=== PATIENT | female | born 1970 | race Caucasian/White ===

== ENCOUNTER 2019-02-21 20:08 | Emergency (ER) | payer BC ==
[2019-02-21 20:19] VITALS: RESP 18; TEMP 98.7
[2019-02-21] MEDS ORDERED: KETOROLAC 30 MG/ML 1 ML VIAL IVP STA (20:34)
[2019-02-21] MEDS ORDERED: SODIUM CHLORIDE 0.9% 1,000 ML IV STA (20:34)
--- NOTE | 2019-02-21 20:39 | ED ---
Abdominal Pain HPI - General Chief Complaint: Abdominal Pain Stated Complaint: Side pain Time Seen by Provider: 02/21/19 20:23 Source: patient Mode of arrival: ambulatory Limitations: no limitations - History of Present Illness Initial Comments: Patient a 48-year-old female presenting to emergency Department with complaints of left-sided abdominal pain on and off for a week. Patient states the pain is in her left side with radiation to the left flank area. Patient states the pain gets really sharp at times and then dull other times. Patient rates her pain a 7/10 right now. Patient denies chest pain, shortness of breath, nausea, vomiting, burning with urination. Patient admits to having a history of stones in her kidneys but has never had pain from them. Patient has no other complaints at this time. - Related Data Previous Rx's Medication Instructions Recorded Ciprofloxacin HCl [Cipro] 500 mg PO Q12HR #20 tablet 04/30/14 Clindamycin HCl 300 mg PO Q6HR #40 cap 04/30/14 Ketorolac [Toradol] 10 mg PO Q8HR #15 tab 02/21/19 Allergies Allergy/AdvReac Type Severity Reaction Status Date / Time amoxicillin trihydrate Allergy Unknown Verified 02/21/19 20:19 [From Augmentin] latex Allergy Unknown Verified 02/21/19 20:19 potassium clavulanate Allergy Unknown Verified 02/21/19 20:19 [From Augmentin] Review of Systems ROS Statement: Those systems with pertinent positive or pertinent negative responses have been documented in the HPI. ROS Other: All systems not noted in ROS Statement are negative. Past Medical History Past Medical History: No Reported History History of Any Multi-Drug Resistant Organisms: None Reported Past Surgical History: Appendectomy, Cholecystectomy Additional Past Surgical History / Comment(s): shoulder surgery, cyst removed from thyroid Past Psychological History: No Psychological Hx Reported Smoking Status: Current every day smoker Past Alcohol Use History: Occasional Past Drug Use History: None Reported General Exam - General Exam Comments Initial Comments: GENERAL: Well-appearing, well-nourished and in no acute distress. HEAD: Atraumatic, normocephalic. EYES: Pupils equal round and reactive to light, extraocular movements intact, sclera anicteric, conjunctiva are normal. ENT: TMs normal, nares patent, oropharynx clear without exudates. Moist mucous membranes. NECK: Normal range of motion, supple without lymphadenopathy or JVD. LUNGS: Breath sounds clear to auscultation bilaterally and equal. No wheezes rales or rhonchi. HEART: Regular rate and rhythm without murmurs, rubs or gallops. ABDOMEN: TTP left lower quadrant and left flank area. Soft, normoactive bowel sounds. No guarding, no rebound. No masses appreciated. Positive left CVA tenderness. : Deferred EXTREMITIES: Normal range of motion, no pitting or edema. No clubbing or cyanosis. NEUROLOGICAL: Cranial nerves II through XII grossly intact. Normal speech, normal gait. PSYCH: Normal mood, normal affect. SKIN: Warm, Dry, normal turgor, no rashes or lesions noted. Limitations: no limitations Course Vital Signs 02/21/19 02/21/19 20:16 22:27 Temperature 98.7 F Pulse Rate 64 56 L Respiratory 18 18 Rate Blood Pressure 113/77 113/73 O2 Sat by Pulse 98 100 Oximetry Medical Decision Making - Medical Decision Making Patient is a 48-year-old female presenting with left side and left flank pain on and off for one week. Patient states the pain is sharp at times and all others. On exam patient is tender in the lower left quadrant and left flank area. CBC and CMP are within normal limits. UA shows moderate amount of blood and a few calcium oxalate crystals. No signs of infection. Urine hCG is negative. CT abdomen shows multiple left-sided renal calculi with largest 7 mm without evidence of renal obstruction. No hydronephrosis. Discussed with patient that her pain is likely related to a large kidney stone but is still present in her kidney. Patient will be given pain Toradol for pain control and referral for a urology for further management. Patient is okay with this plan. Patient felt improvement with Toradol and fluids in the ER. Patient will be discharged. - Lab Data Result diagrams: 02/21/19 20:46 02/21/19 20:46 Lab Results 02/21/19 02/21/19 02/21/19 Range/Units 20:46 20:46 20:46 WBC 7.9 (3.8-10.6) k/uL RBC 5.37 (3.80-5.40) m/uL Hgb 14.5 (11.4-16.0) gm/dL Hct 46.0 (34.0-46.0) % MCV 85.8 (80.0-100.0) fL MCH 27.1 (25.0-35.0) pg MCHC 31.6 (31.0-37.0) g/dL RDW 13.8 (11.5-15.5) % Plt Count 336 (150-450) k/uL Neutrophils % 56 % Lymphocytes % 33 % Monocytes % 5 % Eosinophils % 3 % Basophils % 1 % Neutrophils # 4.4 (1.3-7.7) k/uL Lymphocytes # 2.6 (1.0-4.8) k/uL Monocytes # 0.4 (0-1.0) k/uL Eosinophils # 0.2 (0-0.7) k/uL Basophils # 0.1 (0-0.2) k/uL Sodium 140 (137-145) mmol/L Potassium 3.8 (3.5-5.1) mmol/L Chloride 107 (98-107) mmol/L Carbon Dioxide 24 (22-30) mmol/L Anion Gap 9 mmol/L BUN 14 (7-17) mg/dL Creatinine 0.71 (0.52-1.04) mg/dL Est GFR (CKD-EPI)AfAm >90 (>60 ml/min/1.73 sqM) Est GFR (CKD-EPI)NonAf >90 (>60 ml/min/1.73 sqM) Glucose 85 (74-99) mg/dL Calcium 9.2 (8.4-10.2) mg/dL Total Bilirubin 0.4 (0.2-1.3) mg/dL AST 25 (14-36) U/L ALT 19 (9-52) U/L Alkaline Phosphatase 79 (38-126) U/L Total Protein 6.8 (6.3-8.2) g/dL Albumin 4.2 (3.5-5.0) g/dL Lipase 102 (23-300) U/L Urine Color Urine Appearance (Clear) Urine pH (5.0-8.0) Ur Specific [place] (1.001-1.035) Urine Protein (Negative) Urine Glucose (UA) (Negative) Urine Ketones (Negative) Urine Blood (Negative) Urine Nitrite (Negative) Urine Bilirubin (Negative) Urine Urobilinogen (<2.0) mg/dL Ur Leukocyte Esterase (Negative) Urine RBC (0-5) /hpf Urine WBC (0-5) /hpf Ur Squamous Epith Cells (0-4) /hpf Calcium Oxalate Crystal (None) /hpf Urine Mucus (None) /hpf Urine HCG, Qual Not Detected (Not Detectd) 02/21/19 Range/Units 20:46 WBC (3.8-10.6) k/uL RBC (3.80-5.40) m/uL Hgb (11.4-16.0) gm/dL Hct (34.0-46.0) % MCV (80.0-100.0) fL MCH (25.0-35.0) pg MCHC (31.0-37.0) g/dL RDW (11.5-15.5) % Plt Count (150-450) k/uL Neutrophils % % Lymphocytes % % Monocytes % % Eosinophils % % Basophils % % Neutrophils # (1.3-7.7) k/uL Lymphocytes # (1.0-4.8) k/uL Monocytes # (0-1.0) k/uL Eosinophils # (0-0.7) k/uL Basophils # (0-0.2) k/uL Sodium (137-145) mmol/L Potassium (3.5-5.1) mmol/L Chloride (98-107) mmol/L Carbon Dioxide (22-30) mmol/L Anion Gap mmol/L BUN (7-17) mg/dL Creatinine (0.52-1.04) mg/dL Est GFR (CKD-EPI)AfAm (>60 ml/min/1.73 sqM) Est GFR (CKD-EPI)NonAf (>60 ml/min/1.73 sqM) Glucose (74-99) mg/dL Calcium (8.4-10.2) mg/dL Total Bilirubin (0.2-1.3) mg/dL AST (14-36) U/L ALT (9-52) U/L Alkaline Phosphatase (38-126) U/L Total Protein (6.3-8.2) g/dL Albumin (3.5-5.0) g/dL Lipase (23-300) U/L Urine Color Yellow Urine Appearance Cloudy H (Clear) Urine pH 6.0 (5.0-8.0) Ur Specific [place] 1.036 H (1.001-1.035) Urine Protein 1+ H (Negative) Urine Glucose (UA) Negative (Negative) Urine Ketones 1+ H (Negative) Urine Blood Moderate H (Negative) Urine Nitrite Negative (Negative) Urine Bilirubin Negative (Negative) Urine Urobilinogen 2.0 (<2.0) mg/dL Ur Leukocyte Esterase Negative (Negative) Urine RBC 9 H (0-5) /hpf Urine WBC 2 (0-5) /hpf Ur Squamous Epith Cells 13 H (0-4) /hpf Calcium Oxalate Crystal Occasional H (None) /hpf Urine Mucus Few H (None) /hpf Urine HCG, Qual (Not Detectd) Disposition Clinical Impression: Acute left flank pain, Calculus of kidney Disposition: HOME SELF-CARE Condition: Stable Instructions (If sedation given, give patient instructions): Flank Pain (ED) Additional Instructions: Please return to the Emergency Department if symptoms worsen or any other concerns. Prescriptions: Ketorolac [Toradol] 10 mg PO Q8HR #15 tab Is patient prescribed a controlled substance at d/c from ED?: No Referrals: Jorge L Dale MD [Primary Care Provider] - 1-2 days Ayaan Lazo MD [STAFF PHYSICIAN] - 1-2 days
[2019-02-21 21:00] LABS: Basophils # (A) 0.1 k/uL (0-0.2); Basophils % (A) 1 %; Eosinophils # (A) 0.2 k/uL (0-0.7); Eosinophils % (A) 3 %; HGB 14.5 gm/dL (11.4-16.0); Lymphocytes # (A) 2.6 k/uL (1.0-4.8); Lymphocytes % (A) 33 %; MCH 27.1 pg (25.0-35.0); MCHC 31.6 g/dL (31.0-37.0); MCV 85.8 fL (80.0-100.0); Mean Platelet Volume 6.4; Monocytes # (A) 0.4 k/uL (0-1.0); Monocytes % (A) 5 %; Neutrophils # (A) 4.4 k/uL (1.3-7.7); Neutrophils % (A) 56 %; Platelet Count 336 k/uL (150-450); RBC 5.37 m/uL (3.80-5.40); RDW 13.8 % (11.5-15.5); WBC 7.9 k/uL (3.8-10.6)
[2019-02-21 21:05] LABS: Appearance,Urine Cloudy (Clear); Bilirubin,Urine Negative (Negative); Blood,Urine Moderate (Negative); Calcium Oxalate Crystals,Urine Occasional /hpf; Color,Urine Yellow; Glucose,Urine (UA) Negative (Negative); Ketones,Urine 1+ (Negative); Leukocyte Esterase,Urine Negative (Negative); Mucus,Urine Few /hpf; Nitrite,Urine Negative (Negative); Protein,Urine 1+ (Negative); RBC,Urine 9 /hpf (0-5); Specific Gravity,Urine 1.036 (1.001-1.035); Squamous Epithelial Cell,Urine 13 /hpf (0-4)
[2019-02-21 21:11] LABS: ALT 19 U/L (9-52); AST 25 U/L (14-36); African American GFR (CKD) >90 (>60 ml/min/1.73 sqM); Albumin 4.2 g/dL (3.5-5.0); Alkaline Phosphatase 79 U/L (38-126); Anion Gap 9 mmol/L; Blood Urea Nitrogen 14 mg/dL (7-17); Calcium 9.2 mg/dL (8.4-10.2); Carbon Dioxide 24 mmol/L (22-30); Chloride 107 mmol/L (98-107); Glucose 85 mg/dL (74-99); Lipase 102 U/L (23-300); Potassium 3.8 mmol/L (3.5-5.1); Sodium 140 mmol/L (137-145); Total Bilirubin 0.4 mg/dL (0.2-1.3); Total Protein 6.8 g/dL (6.3-8.2)
--- NOTE | 2019-02-21 21:52 | CT ---
EXAMINATION TYPE: CT abdomen pelvis wo con DATE OF EXAM: 02/21/2019 COMPARISON: None HISTORY: Left flank pain CT DLP: 847.2 mGycm Automated exposure control for dose reduction was used. TECHNIQUE: Helical acquisition of images was performed from the lung bases through the pelvis. FINDINGS: Lung bases are clear. There is no pleural effusion. Heart size is normal. Liver spleen pancreas appear normal. There are clips from cholecystectomy. Bile ducts are not dilated . Stomach appears normal. There is no adrenal mass. There are a few calculi in the left kidney that measure up to 7 mm. There i s no hydronephrosis. Ureters are not dilated. There is no retroperitoneal adenopathy. There is mild c ortical thinning upper pole left kidney that could relate to chronic pyelonephritis. Bladder distends smoothly. Uterus is anteverted. There is no inguinal hernia. There is no free fluid in the pelvis. There is 2.5 cm cyst on the right ovary. There are some mild spondylosis in the lower lumbar spine. There is no compression fracture. There ar e clips apparently from appendectomy. There is no mesenteric edema. There is no ascites or free air. There is no sign of a bowel obstructio n. The bony pelvis appears intact. IMPRESSION: MULTIPLE LEFT-SIDED RENAL CALCULI WITHOUT EVIDENCE OF RENAL OBSTRUCTION. NO HYDRONEPHROSIS. RIGHT OVA JACEY CYST.
[2019-02-21 22:29] VITALS: BP 113/73; PULSE 56
== END 2019-02-21 22:27 | disposition home or self-care (01) ==
LOC: EC 20:08
DX: N20.0 Calculus of kidney (principal); F17.200 Nicotine dependence, unspecified, uncomplicated; Z90.49 Acquired absence of other specified parts of digestive tract; Z88.0 Allergy status to penicillin; Z91.040 Latex allergy status
CPT/HCPCS: 36415; 80053; 83690; 85025; 81001; 81025; 74176; 99284; 96374; 96361; J1885

== ENCOUNTER → 2019-02-26 | Outpatient (CLI) | payer BC ==
--- NOTE | 2019-02-26 17:00 | XR ---
KUB HISTORY: Right renal calculus KUB on [address] 02/22/2019 There is a calcification superimposed over the midpole the left kidney measuring 8 to 9 mm, 2 mm calc ification is superimposed over the upper pole. There is a small phlebolith in left hemipelvis. Surgical clip is also present in the pelvis and in th e right lower quadrant. Clips present in the right upper quadrant. Degenerative disc change in the visualized spine. IMPRESSION: Left-sided nephrolithiasis.
== END | disposition home or self-care (01) ==
LOC: RADXRMAIN 11:34
PROVIDERS: ATTEND Urology
DX: N20.0 Calculus of kidney (principal)
CPT/HCPCS: 74018

== ENCOUNTER → 2019-03-09 | Outpatient (CLI) | payer BC ==
--- NOTE | 2019-03-09 13:02 | XR ---
EXAMINATION TYPE: XR KUB DATE OF EXAM: 03/09/2019 COMPARISON: 02/26/2019 HISTORY: Left renal calculus TECHNIQUE: One view abdominal series FINDINGS: The osseous structures are intact. The bowel gas pattern is nonspecific. Bowel content obscures the renal outlines however there suspicion for 2 mm upper pole left renal calculus. Surgical clips are no crystal. Punctate calcification left hemipelvis stable. Hypertrophic changes of the acetabulum can be ass ociated with femoral acetabular impingement. IMPRESSION: 1. Nonspecific abdomen. 2. Suspect a punctate 2 mm left upper pole renal calculus.
== END | disposition home or self-care (01) ==
LOC: RADXRMAIN 11:18
PROVIDERS: ATTEND Urology
DX: N20.0 Calculus of kidney (principal)
CPT/HCPCS: 74018

== ENCOUNTER 2021-05-06 11:53 | Emergency (ER) | payer BC ==
[2021-05-06 12:12] VITALS: RESP 18
--- NOTE | 2021-05-06 12:14 | ED ---
General Adult HPI - General Chief complaint: Recheck/Abnormal Lab/Rx Stated complaint: Abd Pain Time Seen by Provider: 05/06/21 12:13 Source: patient Mode of arrival: ambulatory Limitations: no limitations - History of Present Illness Initial comments: 51-year-old female history of kidney stones presenting to emergency with a chief complaint of a kidney stone. She states her symptoms began about 3 days ago and is located in the left flank region. States her most recent kidney stone was over 5 years ago. Patient reports now the symptoms seem to be persistent the left flank with occasional radiation to the abdomen. She reports going to her primary care physician and was started on Azo and Macrobid with no improvement of symptoms. Patient states there is no urinary or vaginal symptoms. Denies any fevers or chills. Does report some nausea but denies any vomiting diarrhea constipation. She denies any hematuria, hematochezia or melena. - Related Data Home Medications Medication Instructions Recorded Confirmed Ibuprofen [Motrin] 800 mg PO TID PRN 05/06/21 05/06/21 Loratadine [Claritin] 10 mg PO DAILY PRN 05/06/21 05/06/21 Nitrofurantoin Monohyd/M-Cryst 100 mg PO BID 05/06/21 05/06/21 [Macrobid] Allergies Allergy/AdvReac Type Severity Reaction Status Date / Time amoxicillin trihydrate Allergy Swelling Verified 05/06/21 13:15 [From Augmentin] latex Allergy Swelling Verified 05/06/21 13:15 potassium clavulanate Allergy Swelling Verified 05/06/21 13:15 [From Augmentin] Review of Systems ROS Statement: Those systems with pertinent positive or pertinent negative responses have been documented in the HPI. ROS Other: All systems not noted in ROS Statement are negative. Past Medical History Past Medical History: No Reported History History of Any Multi-Drug Resistant Organisms: None Reported Past Surgical History: Appendectomy, Cholecystectomy Additional Past Surgical History / Comment(s): shoulder surgery, cyst removed from thyroid Past Psychological History: No Psychological Hx Reported Smoking Status: Current every day smoker Past Alcohol Use History: Occasional Past Drug Use History: None Reported General Exam Limitations: no limitations General appearance: alert, in no apparent distress, obese Head exam: Present: atraumatic, normocephalic, normal inspection Eye exam: Present: normal appearance Pupils: Present: normal accommodation ENT exam: Present: normal exam, normal oropharynx, mucous membranes moist Neck exam: Present: normal inspection, full ROM. Absent: tenderness, lymphadenopathy Respiratory exam: Present: normal lung sounds bilaterally. Absent: respiratory distress, wheezes, rales, rhonchi, stridor, chest wall tenderness, accessory muscle use Cardiovascular Exam: Present: regular rate, normal rhythm, normal heart sounds. Absent: systolic murmur GI/Abdominal exam: Present: soft. Absent: distended, tenderness, guarding, rebound, rigid Extremities exam: Present: normal inspection, full ROM, normal capillary refill. Absent: tenderness, pedal edema, joint swelling Back exam: Present: normal inspection, full ROM, tenderness, CVA tenderness (L). Absent: CVA tenderness (R) Neurological exam: Present: alert, oriented X3, normal gait Psychiatric exam: Present: normal affect, normal mood Skin exam: Present: warm, dry, intact, normal color Course Vital Signs 05/06/21 12:09 Temperature 98.2 F Pulse Rate 84 Respiratory 18 Rate Blood Pressure 124/94 O2 Sat by Pulse 97 Oximetry Medical Decision Making - Medical Decision Making 51-year-old female presents to emergency department for chief complaint of left flank pain. Physical examination, left CVA tenderness. She is otherwise well- appearing. Patient was given IV fluids, analgesia and antiemetics. On reevaluation, she reports some improvement of symptoms but it continued to persist. Patient was also given additional analgesia. UA shows hematuria. Negative . The rest of the laboratory workup is unremarkable. CT of the abdomen and pelvis without contrast reveals a 3 mm nonobstructing stone. There is a possibility for renal cyst on the right side as well. I advised the patient to follow up with the urologist. I will give her Tylenol 3 starter pack for home. We'll also discharge her with Flomax and Zofran. Advised to follow- up with urologist. Return parameters were thoroughly discussed the patient was then given. Case discussed physician. - Lab Data Result diagrams: 05/06/21 12:44 05/06/21 12:44 Lab Results 05/06/21 05/06/21 05/06/21 Range/Units 12:44 12:44 12:44 WBC 5.8 (3.8-10.6) k/uL RBC 5.32 (3.80-5.40) m/uL Hgb 15.3 (11.4-16.0) gm/dL Hct 45.7 (34.0-46.0) % MCV 85.9 (80.0-100.0) fL MCH 28.8 (25.0-35.0) pg MCHC 33.5 (31.0-37.0) g/dL RDW 13.9 (11.5-15.5) % Plt Count 322 (150-450) k/uL MPV 6.9 Neutrophils % 58 % Lymphocytes % 31 % Monocytes % 5 % Eosinophils % 3 % Basophils % 1 % Neutrophils # 3.3 (1.3-7.7) k/uL Lymphocytes # 1.8 (1.0-4.8) k/uL Monocytes # 0.3 (0-1.0) k/uL Eosinophils # 0.2 (0-0.7) k/uL Basophils # 0.1 (0-0.2) k/uL Sodium (137-145) mmol/L Potassium (3.5-5.1) mmol/L Chloride (98-107) mmol/L Carbon Dioxide (22-30) mmol/L Anion Gap mmol/L BUN (7-17) mg/dL Creatinine (0.52-1.04) mg/dL Est GFR (CKD-EPI)AfAm (>60 ml/min/1.73 sqM) Est GFR (CKD-EPI)NonAf (>60 ml/min/1.73 sqM) Glucose (74-99) mg/dL Calcium (8.4-10.2) mg/dL Total Bilirubin (0.2-1.3) mg/dL AST (14-36) U/L ALT (4-34) U/L Alkaline Phosphatase (38-126) U/L Total Protein (6.3-8.2) g/dL Albumin (3.5-5.0) g/dL Lipase (23-300) U/L Urine Color Yellow Urine Appearance Clear (Clear) Urine pH 7.0 (5.0-8.0) Ur Specific [place] 1.012 (1.001-1.035) Urine Protein Negative (Negative) Urine Glucose (UA) Negative (Negative) Urine Ketones Negative (Negative) Urine Blood Small H (Negative) Urine Nitrite Negative (Negative) Urine Bilirubin Negative (Negative) Urine Urobilinogen <2.0 (<2.0) mg/dL Ur Leukocyte Esterase Negative (Negative) Urine RBC 29 H (0-5) /hpf Urine WBC 2 (0-5) /hpf Ur Squamous Epith Cells 3 (0-4) /hpf Urine Mucus Rare H (None) /hpf Urine HCG, Qual Not Detected (Not Detectd) 05/06/21 Range/Units 12:44 WBC (3.8-10.6) k/uL RBC (3.80-5.40) m/uL Hgb (11.4-16.0) gm/dL Hct (34.0-46.0) % MCV (80.0-100.0) fL MCH (25.0-35.0) pg MCHC (31.0-37.0) g/dL RDW (11.5-15.5) % Plt Count (150-450) k/uL MPV Neutrophils % % Lymphocytes % % Monocytes % % Eosinophils % % Basophils % % Neutrophils # (1.3-7.7) k/uL Lymphocytes # (1.0-4.8) k/uL Monocytes # (0-1.0) k/uL Eosinophils # (0-0.7) k/uL Basophils # (0-0.2) k/uL Sodium 138 (137-145) mmol/L Potassium 4.4 (3.5-5.1) mmol/L Chloride 109 H (98-107) mmol/L Carbon Dioxide 21 L (22-30) mmol/L Anion Gap 8 mmol/L BUN 11 (7-17) mg/dL Creatinine 0.69 (0.52-1.04) mg/dL Est GFR (CKD-EPI)AfAm >90 (>60 ml/min/1.73 sqM) Est GFR (CKD-EPI)NonAf >90 (>60 ml/min/1.73 sqM) Glucose 105 H (74-99) mg/dL Calcium 9.5 (8.4-10.2) mg/dL Total Bilirubin 0.3 (0.2-1.3) mg/dL AST 30 (14-36) U/L ALT 23 (4-34) U/L Alkaline Phosphatase 90 (38-126) U/L Total Protein 6.8 (6.3-8.2) g/dL Albumin 4.3 (3.5-5.0) g/dL Lipase 106 (23-300) U/L Urine Color Urine Appearance (Clear) Urine pH (5.0-8.0) Ur Specific [place] (1.001-1.035) Urine Protein (Negative) Urine Glucose (UA) (Negative) Urine Ketones (Negative) Urine Blood (Negative) Urine Nitrite (Negative) Urine Bilirubin (Negative) Urine Urobilinogen (<2.0) mg/dL Ur Leukocyte Esterase (Negative) Urine RBC (0-5) /hpf Urine WBC (0-5) /hpf Ur Squamous Epith Cells (0-4) /hpf Urine Mucus (None) /hpf Urine HCG, Qual (Not Detectd) Disposition Clinical Impression: Renal stone Disposition: HOME SELF-CARE Condition: Stable Instructions (If sedation given, give patient instructions): Kidney Stones (ED) Additional Instructions: Take prescribed medication as directed. Follow-up with urology. Return to emergency department if symptoms worsen. Is patient prescribed a controlled substance at d/c from ED?: No Referrals: Jorge L Dale MD [Primary Care Provider] - 1-2 days Ayaan Lazo MD [STAFF PHYSICIAN] - 1-2 days Time of Disposition: 14:18
[2021-05-06] MEDS ORDERED: KETOROLAC 15 MG/ML 1 ML VIAL IVP STA (12:27)
[2021-05-06] MEDS ORDERED: PANTOPRAZOLE 40 MG/10 ML VIAL IVP STA (12:27)
[2021-05-06] MEDS ORDERED: ONDANSETRON 4 MG/2 ML VIAL IVP STA (12:27)
[2021-05-06] MEDS ORDERED: SODIUM CHLORIDE 0.9% 1,000 ML IV STA (12:27)
[2021-05-06 13:05] LABS: Basophils # (A) 0.1 k/uL (0-0.2); Basophils % (A) 1 %; Eosinophils # (A) 0.2 k/uL (0-0.7); Eosinophils % (A) 3 %; HCT 45.7 % (34.0-46.0); HGB 15.3 gm/dL (11.4-16.0); Lymphocytes # (A) 1.8 k/uL (1.0-4.8); Lymphocytes % (A) 31 %; MCH 28.8 pg (25.0-35.0); MCHC 33.5 g/dL (31.0-37.0); MCV 85.9 fL (80.0-100.0); Mean Platelet Volume 6.9; Monocytes # (A) 0.3 k/uL (0-1.0); Monocytes % (A) 5 %; Neutrophils # (A) 3.3 k/uL (1.3-7.7); Neutrophils % (A) 58 %; Platelet Count 322 k/uL (150-450); RBC 5.32 m/uL (3.80-5.40); RDW 13.9 % (11.5-15.5); WBC 5.8 k/uL (3.8-10.6)
[2021-05-06 13:12] LABS: ALT 23 U/L (4-34); AST 30 U/L (14-36); African American GFR (CKD) >90 (>60 ml/min/1.73 sqM); Albumin 4.3 g/dL (3.5-5.0); Alkaline Phosphatase 90 U/L (38-126); Anion Gap 8 mmol/L; Blood Urea Nitrogen 11 mg/dL (7-17); Calcium 9.5 mg/dL (8.4-10.2); Carbon Dioxide 21 mmol/L (22-30); Chloride 109 mmol/L (98-107); Glucose 105 mg/dL (74-99); Lipase 106 U/L (23-300); Non-African American GFR(CKD) >90 (>60 ml/min/1.73 sqM); Potassium 4.4 mmol/L (3.5-5.1); Sodium 138 mmol/L (137-145); Total Bilirubin 0.3 mg/dL (0.2-1.3); Total Protein 6.8 g/dL (6.3-8.2)
[2021-05-06 13:18] LABS: Appearance,Urine Clear (Clear); Bilirubin,Urine Negative (Negative); Blood,Urine Small (Negative); Color,Urine Yellow; Glucose,Urine (UA) Negative (Negative); Ketones,Urine Negative (Negative); Leukocyte Esterase,Urine Negative (Negative); Mucus,Urine Rare /hpf; Nitrite,Urine Negative (Negative); Protein,Urine Negative (Negative); RBC,Urine 29 /hpf (0-5); Specific Gravity,Urine 1.012 (1.001-1.035); Squamous Epithelial Cell,Urine 3 /hpf (0-4); Urobilinogen,Urine <2.0 mg/dL (<2.0); WBC,Urine 2 /hpf (0-5)
[2021-05-06] MEDS ORDERED: MORPHINE SULFATE 4 MG/ML SYRINGE IVP STA (14:09)
--- NOTE | 2021-05-06 14:13 | CT ---
EXAMINATION TYPE: CT abdomen pelvis wo con DATE OF EXAM: 05/06/2021 COMPARISON: 02/21/2019 HISTORY: Left flank pain TECHNIQUE: CT scan of the abdomen and pelvis performed without contrast CT DLP: 1068.4 mGycm Automated exposure control for dose reduction was used. FINDINGS: The lower thorax is unremarkable. Lack of IV contrast limits evaluation of intra-abdominal and pelvic organs. The liver, spleen, pancreas and adrenal glands are unremarkable. Cholecystectomy clips are seen. No a bnormal biliary ductal dilatation seen. There is a 3 mm calculus in the left kidney upper pole. There is no hydronephrosis of either kidneys. Suboptimally evaluated low attenuating lesion in the right kidney lower pole posteriorly series 201 image 38 may represent a cyst. Ureters are not dilated. The urinary bladder is partially distended un remarkable as seen. No evidence for intestinal obstruction. No diverticulosis seen. The appendix is not definitely identi fied, no inflammatory changes are seen in the right lower quadrant. No pneumoperitoneum or ascites. No enlarged retroperitoneal or pelvic lymph nodes. There is a prominent lymph node in the periportal area series 201 image 25. This was seen on prior study. The uterus and adnexal regions are unremarkable. No acute osseous abnormality. Mild to moderate degenerative changes are seen in the lower lumbar spin e. The aorta is nonaneurysmal. Minimal wall calcifications are seen in the infrarenal abdominal aorta. IMPRESSION: 1. NONOBSTRUCTING 3 MM LEFT RENAL CALCULUS. 2. QUESTIONABLE RIGHT RENAL LOW ATTENUATING LESION COULD REPRESENT A CYST, RENAL ULTRASOUND RECOMMEND ED.
[2021-05-06] MEDS ORDERED: ACET/COD 300 MG/30 MG STARTER PACK 6 TAB BTL PO STA (14:18)
[2021-05-06 14:27] VITALS: BP 119/78; PULSE 66; TEMP 98
== END 2021-05-06 14:56 | disposition home or self-care (01) ==
LOC: EC 11:53
DX: N20.0 Calculus of kidney (principal); E66.9 Obesity, unspecified; F17.200 Nicotine dependence, unspecified, uncomplicated; Z79.1 Long term (current) use of non-steroidal anti-inflammatories (NSAID); Z88.0 Allergy status to penicillin; Z88.1 Allergy status to other antibiotic agents; Z90.49 Acquired absence of other specified parts of digestive tract; Z68.37 Body mass index [BMI] 37.0-37.9, adult
CPT/HCPCS: 36415; 80053; 83690; 85025; 81001; 81025; 74176; 96374; 96375 ×3; 96361; 99284; J2270; J2405; J1885; C9113

== ENCOUNTER 2021-05-07 18:09 | Emergency (ER) | payer BC ==
[2021-05-07 18:13] VITALS: RESP 18; TEMP 97.6
[2021-05-07] MEDS ORDERED: KETOROLAC 15 MG/ML 1 ML VIAL IVP STA (18:27)
[2021-05-07] MEDS ORDERED: ONDANSETRON ODT 8 MG TAB.RAPDIS PO STA (18:27)
[2021-05-07] MEDS ORDERED: SODIUM CHLORIDE 0.9% 1,000 ML IV STA (18:27)
[2021-05-07] MEDS ORDERED: PANTOPRAZOLE 40 MG/10 ML VIAL IVP STA (18:27)
[2021-05-07 18:40] LABS: Basophils # (A) 0.1 k/uL (0-0.2); Basophils % (A) 0 %; Eosinophils # (A) 0.1 k/uL (0-0.7); Eosinophils % (A) 1 %; HCT 46.4 % (34.0-46.0); HGB 15.1 gm/dL (11.4-16.0); Lymphocytes # (A) 1.2 k/uL (1.0-4.8); Lymphocytes % (A) 11 %; MCH 27.6 pg (25.0-35.0); MCHC 32.6 g/dL (31.0-37.0); MCV 84.8 fL (80.0-100.0); Mean Platelet Volume 6.7; Monocytes # (A) 0.4 k/uL (0-1.0); Monocytes % (A) 3 %; Neutrophils # (A) 9.9 k/uL (1.3-7.7); Neutrophils % (A) 84 %; Platelet Count 348 k/uL (150-450); RBC 5.48 m/uL (3.80-5.40); RDW 13.9 % (11.5-15.5); WBC 11.7 k/uL (3.8-10.6)
--- NOTE | 2021-05-07 18:45 | ED ---
Abdominal Pain HPI - General Source: patient Mode of arrival: ambulatory Limitations: no limitations <Ramakrishna Asencio - Last Filed: 05/07/21 19:12> <Hiwot Pruett - Last Filed: 05/07/21 20:21> - General Chief Complaint: Abdominal Pain Stated Complaint: altered mental status, kidney stone Time Seen by Provider: 05/07/21 18:15 - History of Present Illness Initial Comments: 51-year-old female with history of renal stones presenting to the emergency department with a chief complaint of a kidney stone and weakness. Patient reports she was evaluated yesterday in emergency department for the same chief complaint not she is having worsening symptoms. States the pain has migrated from the left flank to the left groin region. However, patient reports not she is feeling significantly weaker. She reports nausea with nonbilious and nonbloody vomiting. Patient reports generalized fatigue and chills but no fevers. The patient's friend is also with her states the patient is not acting like herself. Denies any chest pain or shortness of breath. Denies hematuria, hematochezia or melena. Denies any obstructive or infectious urinary symptoms. Denies any vaginal symptoms. (Ramakrishna Asencio) - Related Data Home Medications Medication Instructions Recorded Confirmed Ibuprofen [Motrin] 800 mg PO TID PRN 05/06/21 05/07/21 Loratadine [Claritin] 10 mg PO DAILY PRN 05/06/21 05/07/21 Nitrofurantoin Monohyd/M-Cryst 100 mg PO BID 05/06/21 05/07/21 [Macrobid] Previous Rx's Medication Instructions Recorded Ondansetron Odt [Zofran Odt] 4 mg PO Q8HR PRN #10 tab 05/06/21 Tamsulosin [Flomax] 0.4 mg PO DAILY #7 cap 05/06/21 HYDROcodone/APAP 5-325MG [[place] 5] 1 each PO Q6HR PRN #12 tab 05/07/21 Allergies Allergy/AdvReac Type Severity Reaction Status Date / Time amoxicillin trihydrate Allergy Swelling Verified 05/07/21 20:08 [From Augmentin] latex Allergy Swelling Verified 05/07/21 20:08 potassium clavulanate Allergy Swelling Verified 05/07/21 20:08 [From Augmentin] Review of Systems ROS Other: All systems not noted in ROS Statement are negative. <Ramakrishna Asencio - Last Filed: 05/07/21 19:12> ROS Other: All systems not noted in ROS Statement are negative. <Hiwot Pruett - Last Filed: 05/07/21 20:21> ROS Statement: Those systems with pertinent positive or pertinent negative responses have been documented in the HPI. Past Medical History Past Medical History: No Reported History History of Any Multi-Drug Resistant Organisms: None Reported Past Surgical History: Appendectomy, Cholecystectomy Additional Past Surgical History / Comment(s): shoulder surgery, cyst removed from thyroid Past Psychological History: No Psychological Hx Reported Smoking Status: Current every day smoker Past Alcohol Use History: Occasional Past Drug Use History: None Reported <Ramakrishna Asencio - Last Filed: 05/07/21 19:12> General Exam Limitations: no limitations General appearance: alert, in no apparent distress, obese Head exam: Present: atraumatic, normocephalic, normal inspection Eye exam: Present: normal appearance Pupils: Present: normal accommodation ENT exam: Present: normal exam, normal oropharynx, mucous membranes moist Neck exam: Present: normal inspection, full ROM. Absent: tenderness, lymphadenopathy, thyromegaly Respiratory exam: Present: normal lung sounds bilaterally. Absent: respiratory distress, wheezes, rales, rhonchi, stridor, chest wall tenderness, accessory muscle use Cardiovascular Exam: Present: regular rate, normal rhythm, normal heart sounds. Absent: systolic murmur GI/Abdominal exam: Present: soft, tenderness (Left groin pain). Absent: distended, guarding, rebound, rigid Extremities exam: Present: normal inspection, full ROM, normal capillary refill. Absent: tenderness, pedal edema, joint swelling Back exam: Present: normal inspection, full ROM, CVA tenderness (L) (Mild). Absent: tenderness, CVA tenderness (R) Neurological exam: Present: alert, oriented X3, CN II-XII intact, normal gait Psychiatric exam: Present: normal affect, normal mood Skin exam: Present: warm, dry, intact, normal color <Ramakrishna Asencio - Last Filed: 05/07/21 19:12> Course Vital Signs 05/07/21 05/07/21 18:11 20:00 Temperature 97.6 F Pulse Rate 82 76 Respiratory 18 18 Rate Blood Pressure 133/78 119/82 O2 Sat by Pulse 100 97 Oximetry Medical Decision Making - Lab Data Result diagrams: 05/07/21 18:31 05/07/21 18:31 <Ramakrishna Asencio - Last Filed: 05/07/21 19:12> - Lab Data Result diagrams: 05/07/21 18:31 05/07/21 18:31 <Hiwot Pruett - Last Filed: 05/07/21 20:21> - Medical Decision Making 51-year-old female with history of renal stones presenting to the emergency depa rtment with a chief complaint of a kidney stone. On physical examination, patient is alert and oriented 3. She does appear to be slightly weak. Left groin tenderness on exam. Laboratory work reveals mild leukocytosis. CMP unremarkable. UA pending. Patient was given IV fluids, analgesia and Protonix and antiemetics. At this time, patient care is signed out to Hiwot Brown NP. (Ramakrishna Asencio) 51-year-old female patient presenting for evaluation of left flank pain weakness. Took over care of patient from Ramakrishna Ireland PA-c. She was evaluated yesterday he was found to have a 3 mm obstructing stone on the left side. Today we presented for increased pain or weakness. I did review labs kidney function is normal. There was mild increase in white blood cell count. Urinalysis shows no evidence for infection. Upon reevaluation she is resting comfortable in bed. States her pain medication did help. She does express some concern about going home due to the weakness. I discussed all lab findings and discussed expected course of kidney stone. She will be discharged with pain medication. She does have zofran and flomax. She is instructed to follow-up with the urologist for further evaluation as soon as possible. Return parameters discussed in detail. She verbalizes understanding and agrees with this plan. Case discussed with my attending Dr. Rey. (Hiwot Pruett) - Lab Data Lab Results 05/07/21 05/07/21 05/07/21 Range/Units 18:31 18:31 19:22 WBC 11.7 H (3.8-10.6) k/uL RBC 5.48 H (3.80-5.40) m/uL Hgb 15.1 (11.4-16.0) gm/dL Hct 46.4 H (34.0-46.0) % MCV 84.8 (80.0-100.0) fL MCH 27.6 (25.0-35.0) pg MCHC 32.6 (31.0-37.0) g/dL RDW 13.9 (11.5-15.5) % Plt Count 348 (150-450) k/uL MPV 6.7 Neutrophils % 84 % Lymphocytes % 11 % Monocytes % 3 % Eosinophils % 1 % Basophils % 0 % Neutrophils # 9.9 H (1.3-7.7) k/uL Lymphocytes # 1.2 (1.0-4.8) k/uL Monocytes # 0.4 (0-1.0) k/uL Eosinophils # 0.1 (0-0.7) k/uL Basophils # 0.1 (0-0.2) k/uL Sodium 132 L (137-145) mmol/L Potassium 4.2 (3.5-5.1) mmol/L Chloride 101 (98-107) mmol/L Carbon Dioxide 20 L (22-30) mmol/L Anion Gap 11 mmol/L BUN 13 (7-17) mg/dL Creatinine 0.70 (0.52-1.04) mg/dL Est GFR (CKD-EPI)AfAm >90 (>60 ml/min/1.73 sqM) Est GFR (CKD-EPI)NonAf >90 (>60 ml/min/1.73 sqM) Glucose 133 H (74-99) mg/dL Calcium 9.2 (8.4-10.2) mg/dL Total Bilirubin 0.3 (0.2-1.3) mg/dL AST 36 (14-36) U/L ALT 27 (4-34) U/L Alkaline Phosphatase 113 (38-126) U/L Total Protein 7.1 (6.3-8.2) g/dL Albumin 4.4 (3.5-5.0) g/dL Lipase 116 (23-300) U/L Urine Color Yellow Urine Appearance Clear (Clear) Urine pH 7.5 (5.0-8.0) Ur Specific [place] 1.007 (1.001-1.035) Urine Protein Negative (Negative) Urine Glucose (UA) Negative (Negative) Urine Ketones 1+ H (Negative) Urine Blood Negative (Negative) Urine Nitrite Negative (Negative) Urine Bilirubin Negative (Negative) Urine Urobilinogen <2.0 (<2.0) mg/dL Ur Leukocyte Esterase Negative (Negative) - EKG Data EKG Comments: Sinus rhythm Matriculate rate 81, LA 140, QRS 84, QTC 457. (Ramakrishna Asencio) Disposition <Ramakrishna Asencio - Last Filed: 05/07/21 19:12> Is patient prescribed a controlled substance at d/c from ED?: No Time of Disposition: 20:08 <Hiwot Pruett - Last Filed: 05/07/21 20:21> Clinical Impression: Left ureteral stone Disposition: HOME SELF-CARE Condition: Good Instructions (If sedation given, give patient instructions): Kidney Stones (ED) Additional Instructions: Increase fluids. Rest. Take medication as directed. Follow up with urology for further evaluation as soon as possible. Return to the emergency department for any new, worsening, or concerning symptoms. Prescriptions: HYDROcodone/APAP 5-325MG [[place] 5] 1 each PO Q6HR PRN #12 tab PRN Reason: Pain Referrals: Jorge L Dale MD [Primary Care Provider] - 1-2 days Ayaan Lazo MD [STAFF PHYSICIAN] - 1-2 days
[2021-05-07 18:47] LABS: ALT 27 U/L (4-34); AST 36 U/L (14-36); African American GFR (CKD) >90 (>60 ml/min/1.73 sqM); Albumin 4.4 g/dL (3.5-5.0); Alkaline Phosphatase 113 U/L (38-126); Anion Gap 11 mmol/L; Blood Urea Nitrogen 13 mg/dL (7-17); Calcium 9.2 mg/dL (8.4-10.2); Carbon Dioxide 20 mmol/L (22-30); Chloride 101 mmol/L (98-107); Glucose 133 mg/dL (74-99); Lipase 116 U/L (23-300); Non-African American GFR(CKD) >90 (>60 ml/min/1.73 sqM); Potassium 4.2 mmol/L (3.5-5.1); Sodium 132 mmol/L (137-145); Total Bilirubin 0.3 mg/dL (0.2-1.3); Total Protein 7.1 g/dL (6.3-8.2)
[2021-05-07] MEDS ORDERED: MORPHINE SULFATE 4 MG/ML SYRINGE IVP STA (19:18)
[2021-05-07 19:35] LABS: Appearance,Urine Clear (Clear); Bilirubin,Urine Negative (Negative); Blood,Urine Negative (Negative); Color,Urine Yellow; Glucose,Urine (UA) Negative (Negative); Ketones,Urine 1+ (Negative); Leukocyte Esterase,Urine Negative (Negative); Nitrite,Urine Negative (Negative); PH, Urine 7.5 (5.0-8.0); Protein,Urine Negative (Negative); Specific Gravity,Urine 1.007 (1.001-1.035); Urobilinogen,Urine <2.0 mg/dL (<2.0)
[2021-05-07 20:11] VITALS: BP 119/82; PULSE 76
== END 2021-05-07 20:13 | disposition home or self-care (01) ==
LOC: EC 18:09
DX: N20.1 Calculus of ureter (principal); F17.200 Nicotine dependence, unspecified, uncomplicated; Z72.89 Other problems related to lifestyle
CPT/HCPCS: 36415; 80053; 83690; 85025; 81003; 99284; 96374; 96375 ×2; 96361; J2270; J1885; C9113

== ENCOUNTER → 2023-02-20 | Outpatient (CLI) | payer OTHER ==
--- NOTE | 2023-02-20 08:12 | MM ---
Reason for Exam: Clinical finding. Last mammogram was performed 4 year(s) and 3 month(s) ago. Patient History: Menarche at age 8. First Full-Term at age 23. Postmenopausal. Mother had breast cancer. Risk Values: Lucy 5 year model risk: 2.5%. NCI Lifetime model risk: 17.2%. Prior Study Comparison: 11/27/2013 Bilateral Screening Mammogram, [facility]. 04/06/2015 Bilateral Screening Mammogram, [facility]. 11/24/2018 Bilateral Screening Mammogram, [facility]. Tissue Density: The breast tissue is heterogeneously dense. This may lower the sensitivity of mammography. Findings: Analyzed By CAD. Patient complains of bilateral nonspecific breast pain. Pattern appears stable. Chronic nodularity is in the outer right mid breast may be an intramammary lymph node. No significant interval change is evident. No suspicious groups of microcalcifications, spiculated or lobular masses, architectural distortion or other secondary signs of malignancy are mammographically apparent. Overall Assessment: Benign, BI-RAD 2 Management: Screening Mammogram of both breasts in 1 year. A negative mammogram report should not preclude additional follow up of suspicious palpable abnormalities. Patient should continue monthly self breast exam. A clinical breast exam by your physician is recommended on an annual basis and results should be correlated with mammographic findings. Electronically signed and approved by: Joshua Lundberg D.O. Radiologis
== END | disposition home or self-care (01) ==
LOC: RADMAMWWP 07:38
PROVIDERS: ATTEND Obstetrics & Gynecology
DX: N63.10 Unspecified lump in the right breast, unspecified quadrant (principal); N64.4 Mastodynia; Z78.0 Asymptomatic menopausal state; Z80.3 Family history of malignant neoplasm of breast
CPT/HCPCS: 77062; 77066

== ENCOUNTER → 2023-02-28 | Outpatient (CLI) | payer OTHER ==
[2023-02-28 17:18] LABS: Basophils # (A) 0.06 X 10*3/uL (0.00-0.10); Basophils % (A) 0.7 %; Eosinophils # (A) 0.24 X 10*3/uL (0.04-0.35); Eosinophils % (A) 2.8 %; HCT 46.2 % (37.2-46.3); HGB 14.3 d/dL (12.0-15.0); Lymphocytes # (A) 2.17 X 10*3/uL (0.90-5.00); Lymphocytes % (A) 25.7 %; MCV 87.3 FL (80.0-97.0); Mean Platelet Volume 9.8 FL (9.5-12.2); Monocytes # (A) 0.51 X 10*3/uL (0.20-1.00); NRBC Per 100 WBC 0 X 10*3/uL (0.00-0.01); Neutrophils # (A) 5.43 X 10*3/uL (1.80-7.70); Neutrophils % (A) 64.4 %; Platelet Count 345 X 10*3/uL (140-440); RBC 5.29 X 10*6/uL (4.10-5.20); RDW 14.4 % (11.5-14.5); WBC 8.44 X 10*3/uL (4.50-10.00)
== END | disposition home or self-care (01) ==
LOC: LABWHC1 10:15
PROVIDERS: ATTEND Obstetrics & Gynecology
DX: Z01.812 Encounter for preprocedural laboratory examination (principal); R94.31 Abnormal electrocardiogram [ECG] [EKG]
CPT/HCPCS: 85025; 93005

== ENCOUNTER → 2023-04-04 | Outpatient (CLI) | payer OTHER ==
[2023-04-04 10:05] VITALS: BP 114/79; PULSE 85; RESP 17; TEMP 98.7
--- NOTE | 2023-04-04 10:25 | P.GSHP ---
History of Present Illness H&P Date: 04/04/23 Chief Complaint: breast pain Mirtha is a 52 year old white female seen in consultation for Dr. Ramirez regarding breast pain. She had a bilateral mammogram on 02-20-23 which was BIRAD 2. This was personally reviewed with Dr. Talbot. She is not complaining of any lumps masses or nodules of concern in either breast. She does not complain of any nipple discharge or skin changes. She has not had any recent trauma or infection in the breast. She is not complaining of any prior breast surgery. She is complaining of fullness and soreness in both breast. She had not had a period for 2 1/2 hears and she then ahd a period and the pain was related to this. She had a D&C and removed a uterine polyp on 03-19-23. Her estrogen levels were tested at that time and they were elevated. The pain in her breast has since resolved. caffeine: 2-3 cups coffee'/day nicotine: 1/2 PPD years (since age 15) chocolate: weekly BCP: used them for about 1 year in her 20's hormones: none Family history: Mother: Stage IV breast cancer maternal grandmother: cervical cancer father: lung and prostate cancer Hormonal History: menarche: 9 , breast fed: yes, age at first : 23 menopause: mikaela-menopausal now Surgical History: gallbladder appy thyroid cyst shoulder right Medical History: varicose veins Social History: nicotine: 1/2 PPD since 15 alcohol: occasional drugs: none - Constitutional Constitutional: Reports sweats - EENT Comment: Conjunctival hemorrhage left eye appointment with ophthalmology Eyes: denies blurred vision, denies pain Ears: deny: decreased hearing, tinnitus Ears, nose, mouth and throat: Denies headache, Denies sore throat - Breasts Breasts: bilateral: as per HPI - Cardiovascular Cardiovascular: Denies chest pain, Denies shortness of breath - Respiratory Respiratory: Denies cough, Denies 7 - Gastrointestinal Gastrointestinal: Denies abdominal pain, Denies diarrhea, Denies nausea, Denies vomiting - Genitourinary (Female) Genitourinary: Reports kidney stones, Denies dysuria, Denies hematuria - Menstruation Menstruation: Reports as per HPI - Musculoskeletal Musculoskeletal: Reports myalgias - Integumentary Integumentary: Denies pruritus, Denies rash - Neurological Neurological: Denies numbness, Denies weakness - Psychiatric Psychiatric: Denies anxiety, Denies depression - Endocrine Endocrine: Reports weight change, Denies fatigue - Hematologic/Lymphatic Comment: none - Allergic/Immunologic Allergic/Immunologic: Reports as per HPI, Reports seasonal allergies Past Medical History Past Medical History: No Reported History, Deep Vein Thrombosis (DVT), GERD/Reflux, Renal Disease Additional Past Medical History / Comment(s): Without menses for 2 years but lately some vaginal bleeding. 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 History of Any Multi-Drug Resistant Organisms: None Reported Past Surgical History: Appendectomy, Cholecystectomy, Orthopedic Surgery Additional Past Surgical History / Comment(s): shoulder surgery, cyst removed from thyroid, lithotripsy Past Anesthesia/Blood Transfusion Reactions: Motion Sickness, Postoperative Nausea & Vomiting (PONV) Additional Past Anesthesia/Blood Transfusion Reaction / Comment(s): Pt has never received blood. Smoking Status: Current every day smoker Past Alcohol Use History: None Reported Past Drug Use History: None Reported - Past Family History Mother Family Medical History: Cancer Additional Family Medical History / Comment(s): . Breast cancer. Father Family Medical History: Cancer Additional Family Medical History / Comment(s): Prostate cancer, lung cancer. Medications and Allergies Home Medications Medication Instructions Recorded Confirmed Type Loratadine [Claritin] 10 mg PO DAILY PRN 05/06/21 04/04/23 History Multivitamins, Thera [Multivitamin 1 tab PO QAM 03/14/23 04/04/23 History (formulary)] Ibuprofen [Motrin] 600 mg PO Q6HR PRN #30 tab 03/19/23 04/04/23 Rx Allergies Allergy/AdvReac Type Severity Reaction Status Date / Time amoxicillin trihydrate Allergy Swelling Verified 04/04/23 09:55 [From Augmentin] latex Allergy Swelling Verified 04/04/23 09:55 potassium clavulanate Allergy Swelling Verified 04/04/23 09:55 [From Augmentin] Surgical - Exam - General no distress - Eyes normal ocular movement - ENT no hearing loss - Neck trachea midline - Respiratory normal respiratory effort, clear to auscultation - Cardiovascular Rhythm: regular Heart Sounds: normal: S1, S2 - Abdomen Abdomen: soft, non tender, no guarding, no rigid, no rebound - Integumentary normal turgor - Neurologic no disoriented, no combative - Musculoskeletal normal gait - Psychiatric oriented to time, oriented to person, oriented to place, speech is normal, memory intact Breast Exam: BRA: 38C Inspection: Bilateral grade 2 ptosis Palpation: Right breast: Multiple positional exam fibrocystic changes no dominant masses or nodules of concern Right axilla: No adenopathy of concern Left breast: Multiple positional exam fibrocystic changes no dominant masses or nodules of concern Left axilla: No adenopathy of concern Results Mammogram reviewed in detail with Dr. Perkins; dense breast Assessment and Plan Assessment: Impression: Bilateral mastodynia most likely related to hormonal changes Fibrocystic breast changes Benign BIRADS 2 recent mammogram from [id number] Plan: Bilateral breast ultrasound after review with Dr. Perkins Believed that the discomfort in the breast was most likely related to hormonal changes as patient had menstrual bleeding in relationship to the pain Lifestyle modifications discussed such as decreased caffeine intake and nicotine Patient will follow up after breast ultrasound Book given to patient regarding breast pain Cc: Yaritza Velasquez
== END ==
LOC: WWCWWP 09:09
PROVIDERS: ATTEND Surgery
DX: N60.12 Diffuse cystic mastopathy of left breast (principal); K21.9 Gastro-esophageal reflux disease without esophagitis; F17.200 Nicotine dependence, unspecified, uncomplicated; Z86.718 Personal history of other venous thrombosis and embolism; Z80.3 Family history of malignant neoplasm of breast; Z87.442 Personal history of urinary calculi; Z88.0 Allergy status to penicillin; Z91.040 Latex allergy status; Z88.8 Allergy status to other drugs, medicaments and biological substances

== ENCOUNTER → 2023-07-09 | Outpatient (CLI) | payer BC ==
--- NOTE | 2023-07-09 10:56 | US ---
EXAMINATION TYPE: US abdomen complete DATE OF EXAM: 07/09/2023 COMPARISON: CT abdomen and pelvis 05/06/2021 CLINICAL INDICATION: Female, 53 years old with history of R10.9 AB PAIN; RUQ discomfort, GB removed TECHNIQUE: Multiple sonographic images of the abdomen are obtained. FINDINGS: EXAM MEASUREMENTS: Liver Length: 15.1 cm CBD: 0.5 cm Spleen: 10.5 cm Right Kidney: 10.9 x 5.4 x 5.3 cm Left Kidney: 10.8 x 4.5 x 5.7 cm Pancreas: Head and Tail obscured by overlying bowel gas, echogenic in appearance Liver: heterogenous in appearance Gallbladder: Surgically absent CBD: wnl Spleen: wnl Right Kidney: No hydronephrosis or masses seen Left Kidney: No hydronephrosis or masses seen Upper IVC: wnl Abd Aorta: limited due to bowel gas, no AAA visualized at time of scan The liver is heterogenous increased echogenic appearance without focal lesion. The intrahepatic port ion of the IVC and proximal abdominal aorta are within normal limits. Gallbladder is surgically absen t. Common bile duct is unremarkable. The visualized portions of the pancreas are homogenous. The hea d and tail are obscured by overlying bowel gas. The spleen is unremarkable. Kidneys are symmetric a nd free of hydronephrosis. No renal lesions are seen. IMPRESSION: 1. No acute process. 2. Hepatic steatosis. 3. Postcholecystectomy changes.
== END | disposition home or self-care (01) ==
LOC: RADUSWWP 10:11
PROVIDERS: ATTEND Family Medicine
DX: K76.0 Fatty (change of) liver, not elsewhere classified (principal); Z90.49 Acquired absence of other specified parts of digestive tract
CPT/HCPCS: 76700

== ENCOUNTER 2023-09-26 14:49 | Emergency (ER) | payer BC ==
[2023-09-26 15:34] VITALS: TEMP 98.8
--- NOTE | 2023-09-26 15:49 | ED ---
ENT HPI - General Chief complaint: Dental/Oral Stated complaint: blood in urine and tooth infection Time Seen by Provider: 09/26/23 15:14 Source: patient, RN notes reviewed, old records reviewed Mode of arrival: ambulatory Limitations: no limitations - History of Present Illness Initial comments: This is a 53-year-old female with multiple complaints patient comes to the ER for evaluation of tooth pain dental pain with known history of dental disease has been a complaint but also has been having some blood in her urine discoloration of her urine and bilateral flank pain. The symptoms have been persistent for a few days with the tooth pain really being uncontrollable last night into today. Patient has no travel history no sick contacts no other complaints no recent change in medications. MD complaint: tooth pain, other (Hematuria flank pain) -: days(s) Location: tooth # Severity: moderate Severity scale (1-10): 4 Quality: sharp Consistency: constant Improves with: none Worsens with: none Associated Symptoms: sore throat - Related Data Home Medications Medication Instructions Recorded Confirmed Loratadine [Claritin] 10 mg PO DAILY PRN 05/06/21 09/26/23 Acetaminophen Tab [Tylenol Tab] 1,000 mg PO Q6HR PRN 09/26/23 09/26/23 Ibuprofen [Motrin Ib] 600 mg PO Q6H PRN 09/26/23 09/26/23 Previous Rx's Medication Instructions Recorded clindamycin HCL [Cleocin] 300 mg PO Q6HR #40 cap 09/27/23 Allergies Allergy/AdvReac Type Severity Reaction Status Date / Time amoxicillin trihydrate Allergy Swelling Verified 09/26/23 17:23 [From Augmentin] latex Allergy Swelling Verified 09/26/23 17:23 potassium clavulanate Allergy Swelling Verified 09/26/23 17:23 [From Augmentin] Review of Systems ROS Statement: Those systems with pertinent positive or pertinent negative responses have been documented in the HPI. ROS Other: All systems not noted in ROS Statement are negative. Past Medical History Past Medical History: No Reported History, Deep Vein Thrombosis (DVT), GERD/Reflux, Renal Disease Additional Past Medical History / Comment(s): Without menses for 2 years but lately some vaginal bleeding. 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 History of Any Multi-Drug Resistant Organisms: None Reported Past Surgical History: Appendectomy, Cholecystectomy, Orthopedic Surgery Additional Past Surgical History / Comment(s): shoulder surgery, cyst removed from thyroid, lithotripsy Past Anesthesia/Blood Transfusion Reactions: Motion Sickness, Postoperative Nausea & Vomiting (PONV) Additional Past Anesthesia/Blood Transfusion Reaction / Comment(s): Pt has never received blood. Past Psychological History: No Psychological Hx Reported Smoking Status: Current every day smoker Past Alcohol Use History: None Reported Past Drug Use History: None Reported - Past Family History Mother Family Medical History: Cancer Additional Family Medical History / Comment(s): . Breast cancer. Father Family Medical History: Cancer Additional Family Medical History / Comment(s): Prostate cancer, lung cancer. General Exam Limitations: no limitations General appearance: alert, in no apparent distress Head exam: Present: atraumatic, normocephalic, normal inspection Eye exam: Present: normal appearance, PERRL, EOMI. Absent: scleral icterus, conjunctival injection, periorbital swelling ENT exam: Present: normal exam, mucous membranes moist Neck exam: Present: normal inspection. Absent: tenderness, meningismus, lymphadenopathy Respiratory exam: Present: normal lung sounds bilaterally. Absent: respiratory distress, wheezes, rales, rhonchi, stridor Cardiovascular Exam: Present: regular rate, normal rhythm, normal heart sounds. Absent: systolic murmur, diastolic murmur, rubs, gallop, clicks GI/Abdominal exam: Present: soft, normal bowel sounds. Absent: distended, tenderness, guarding, rebound, rigid Extremities exam: Present: normal inspection, full ROM, normal capillary refill. Absent: tenderness, pedal edema, joint swelling, calf tenderness Back exam: Present: normal inspection Neurological exam: Present: alert, oriented X3, CN II-XII intact Psychiatric exam: Present: normal affect, normal mood Skin exam: Present: warm, dry, intact, normal color. Absent: rash Course Vital Signs 09/26/23 09/26/23 09/26/23 15:09 18:35 19:53 Temperature 98.8 F Pulse Rate 80 68 80 Respiratory 16 20 16 Rate Blood Pressure 130/79 117/84 114/73 O2 Sat by Pulse 99 98 98 Oximetry - Reevaluation(s) Reevaluation #1: Medical records reviewed Reevaluation #2: Patient symptoms are improved Reevaluation #3: Patient informed of results and questions answered Reevaluation #4: 09/26/23 17:13 Was pt. sent in by a medical professional or institution (, [facility], X RAY OPERATOR, urgent care, hospital, or correction...) When possible be specific @ -no Did you speak to anyone other than the patient for history (EMS, parent, family, police, friend...)? What history was obtained from this source @ -no Did you review nursing and triage notes (agree or disagree)? Why? @ -agree Are old charts reviewed (outside hosp., previous admission, EMS record, old EKG, old radiological studies, urgent care reports/EKG's, correction records)? Report findings @ -yes Differential Diagnosis (chest pain, altered mental status, abdominal pain women, abdominal pain men, vaginal bleeding, weakness, fever, dyspnea, syncope, headache, dizziness, GI bleed, back pain, seizure, CVA, palpatations, mental health, musculoskeletal)? @ -prior EKG interpreted by me (3pts min.). @ -yes X-rays interpreted by me (1pt min.). @ -no CT interpreted by me (1pt min.). @ -yes negative for acute disease U/S interpreted by me (1pt. min.). @ -no What testing was considered but not performed or refused? (CT, X-rays, U/S, labs)? Why? @ -none What meds were considered but not given or refused? Why? @ -none Did you discuss the management of the patient with other professionals (professionals i.e. FRANKLIN Diaz, X RAY OPERATOR, lab, RT, psych nurse, psychosocial rehabilitation counselor, tape folding machine operator, teacher, chemistry technical officer, special education case manager)? Give summary @ -no Was smoking cessation discussed for >3mins.? @ -no Was critical care preformed (if so, how long)? @ -no Were there social determinants of health that impacted care today? How? (Homelessness, low income, unemployed, alcoholism, drug addiction, transportation, low edu. Level, literacy, decrease access to med. care, long term, rehab)? @ -none Was there de-escalation of care discussed even if they declined (Discuss DNR or withdrawal of care, Hospice)? DNR status @ -no What co-morbidities impacted this encounter? (DM, HTN, Smoking, COPD, CAD, Cancer, CVA, ARF, Chemo, Hep., AIDS, mental health diagnosis, sleep apnea, morbid obesity)? @ -none Was patient admitted / discharged? Hospital course, mention meds given and route, prescriptions, significant lab abnormalities, going to OR and other pertinent info. @ - 53 female with a few complaints today patient does have dental abscess and infection which we will place on antibiotics. Patient also has hematuria to follow-up with primary care if need for urology evaluation if hematuria persist. Patient will be treated for symptomatic cystitis Discharge Undiagnosed new problem with uncertain prognosis? @ -no Drug Therapy requiring intensive monitoring for toxicity (Heparin, Nitro, Insulin, Cardizem)? @ -no Were any procedures done? @ -no Diagnosis/symptom? @ -Hemorrhagic cystitis, UTI, dental abscess and infection Acute, or Chronic, or Acute on Chronic? @ -Acute Uncomplicated (without systemic symptoms) or Complicated (systemic symptoms)? @ -Complicated Side effects of treatment? @ -no Exacerbation, Progression, or Severe Exacerbation? @ -exacerbation Poses a threat to life or bodily function? How? (Chest pain, USA, VT, pneumonia, PE, COPD, DKA, ARF, appy, cholecystitis, CVA, Diverticulitis, Homicidal, Suicidal, threat to staff... and all critical care pts) @ -no Medical Decision Making - Medical Decision Making 53 female with a few complaints today patient does have dental abscess and infection which we will place on antibiotics. Patient also has hematuria to follow-up with primary care if need for urology evaluation if hematuria persist. Patient will be treated for symptomatic cystitis - Lab Data Lab Results 09/26/23 Range/Units 17:01 Urine Color Yellow Urine Appearance Clear (Clear) Urine pH 6.5 (5.0-8.0) Ur Specific [place] 1.014 (1.001-1.035) Urine Protein Negative (Negative) Urine Glucose (UA) Negative (Negative) Urine Ketones Negative (Negative) Urine Blood Large H (Negative) Urine Nitrite Negative (Negative) Urine Bilirubin Negative (Negative) Urine Urobilinogen <2.0 (<2.0) mg/dL Ur Leukocyte Esterase Negative (Negative) Urine RBC >182 H (0-5) /hpf Urine WBC 5 (0-5) /hpf Ur Squamous Epith Cells 6 H (0-4) /hpf Urine Mucus Rare H (None) /hpf - EKG Data -: EKG Interpreted by Me (EKG is sinus 70 [place] 157 QRs 84 QTc 400) - Radiology Data Radiology results: report reviewed (CT abdomen pelvis is negative for acute disease), image reviewed Disposition Clinical Impression: Dental abscess, Dental caries, Hematuria, UTI (urinary tract infection), Hemorrhagic cystitis Disposition: HOME SELF-CARE Condition: Good Instructions (If sedation given, give patient instructions): Dental Abscess (ED), Hematuria (ED), Toothache (ED) Prescriptions: clindamycin HCL [Cleocin] 300 mg PO Q6HR #40 cap Is patient prescribed a controlled substance at d/c from ED?: No Referrals: Bernabe Hernandez MD [Primary Care Provider] - 1-2 days Malvin Anthony MD [STAFF PHYSICIAN] - 1-2 days Time of Disposition: 18:40
[2023-09-26] MEDS: CLINDAMYCIN 150 MG CAP PO STA (17:04)
[2023-09-26] MEDS: Acetaminophen-Codeine 300-30mg TAB PO STA (17:05)
[2023-09-26] MEDS: ACET/COD 300 MG/30 MG STARTER PACK 6 TAB BTL PO STA (17:06)
[2023-09-26] MEDS: IBUPROFEN 600 MG STARTER PACK 4 TAB BTL PO STA (17:06)
[2023-09-26 18:33] LABS: Appearance,Urine Clear (Clear); Bilirubin,Urine Negative (Negative); Blood,Urine Large (Negative); Color,Urine Yellow; Glucose,Urine (UA) Negative (Negative); Ketones,Urine Negative (Negative); Leukocyte Esterase,Urine Negative (Negative); Mucus,Urine Rare /hpf; Nitrite,Urine Negative (Negative); PH, Urine 6.5 (5.0-8.0); Protein,Urine Negative (Negative); RBC,Urine >182 /hpf (0-5); Specific Gravity,Urine 1.014 (1.001-1.035); Squamous Epithelial Cell,Urine 6 /hpf (0-4); Urobilinogen,Urine <2.0 mg/dL (<2.0); WBC,Urine 5 /hpf (0-5)
--- NOTE | 2023-09-26 18:36 | CT ---
EXAMINATION TYPE: CT abdomen pelvis wo con DATE OF EXAM: 09/26/2023 COMPARISON: 05/06/2021 INDICATION: hematuria DLP: 1089.4 mGycm, Automated exposure control for dose reduction was used. CONTRAST: 0 mL of Isovue 300. Study performed without Oral Contrast TECHNIQUE: Axial images were obtained from above the diaphragm to the pubic rami in the axial plane a t 5 mm thick sections. Reconstructed images are reviewed on the computer in the coronal plane. FINDINGS: Limited CT sections are obtained the lung bases. The lung bases are clear. CT ABDOMEN: Liver: Normal Spleen: Normal Pancreas: Normal Adrenal glands: The adrenal glands are normal. Gallbladder: Surgically absent Kidneys: No masses are evident. No hydronephrosis is present. There is a nonobstructing renal stone 0.5 cm in the superior pole left kidney. Aorta: Vascular calcification is within the aorta. Inferior vena cava: Normal. CT PELVIS: Loops of bowel within the abdomen and pelvis are normal. There are loops of bowel which are incom pletely distended or lack oral contrast limiting their evaluation. Appendix: Not identified. No dilated tubular structure or inflammatory changes. Urinary bladder: There appears to be some subtle increased density within the posterior lateral right portion of the urinary bladder. The external urinary bladder wall appears normal without inflammator y change. Underlying mass however should be considered. Additional workup of the urinary bladder is r ecommended with ultrasound Genitourinary structures: Uterus is unremarkable. Adnexa are normal. Osseous structures: No suspicious lytic or sclerotic lesions. IMPRESSION: 1. Suspicion of a right posterior lateral urinary bladder mass. Additional workup with ultrasound is recommended. 2. Nonobstructing left renal stones
[2023-09-26 20:14] VITALS: BP 114/73; PULSE 80; RESP 16
== END 2023-09-26 19:58 | disposition home or self-care (01) ==
LOC: EC 14:49
DX: N39.0 Urinary tract infection, site not specified (principal); K04.7 Periapical abscess without sinus; K02.9 Dental caries, unspecified; F17.200 Nicotine dependence, unspecified, uncomplicated; Z88.0 Allergy status to penicillin; Z88.1 Allergy status to other antibiotic agents; Z91.040 Latex allergy status; Z90.49 Acquired absence of other specified parts of digestive tract
CPT/HCPCS: 74176; 81001; 99284

== ENCOUNTER → 2023-10-24 | Outpatient (CLI) | payer BC ==
[2023-10-24 18:43] LABS: Basophils # (A) 0.06 X 10*3/uL (0.00-0.10); Basophils % (A) 0.9 %; Eosinophils # (A) 0.15 X 10*3/uL (0.04-0.35); Eosinophils % (A) 2.1 %; HCT 44.6 % (37.2-46.3); Lymphocytes # (A) 2.49 X 10*3/uL (0.90-5.00); Lymphocytes % (A) 35.5 %; MCH 26.6 pg (27.0-32.0); MCHC 31.4 g/dL (32.0-37.0); MCV 84.6 FL (80.0-97.0); Mean Platelet Volume 9.7 FL (9.5-12.2); Monocytes # (A) 0.47 X 10*3/uL (0.20-1.00); Monocytes % (A) 6.7 %; NRBC Per 100 WBC 0 X 10*3/uL (0.00-0.01); Neutrophils # (A) 3.83 X 10*3/uL (1.80-7.70); Neutrophils % (A) 54.5 %; Platelet Count 289 X 10*3/uL (140-440); RBC 5.27 X 10*6/uL (4.10-5.20); RDW 13.9 % (11.5-14.5); WBC 7.02 X 10*3/uL (4.50-10.00)
[2023-10-24 20:59] LABS: BUN/Creat Ratio 16.88 Ratio (12.00-20.00); Blood Urea Nitrogen 13.5 mg/dL (9.0-27.0); Carbon Dioxide 26.7 mmol/L (21.6-31.8); Chloride 103 mmol/L (96-109); Glucose 99 mg/dL (70-110); Potassium 4.5 mmol/L (3.5-5.5); Sodium 139 mmol/L (135-145)
== END | disposition home or self-care (01) ==
LOC: LABPAT 13:05
PROVIDERS: ATTEND Urology
DX: Z01.812 Encounter for preprocedural laboratory examination (principal); D49.4 Neoplasm of unspecified behavior of bladder
CPT/HCPCS: 80048; 85025; 87086

== ENCOUNTER → 2023-10-24 | Outpatient (CLI) | payer BC ==
--- NOTE | 2023-10-24 14:22 | CTL ---
EXAMINATION TYPE: CT Low Dose Lung DATE OF EXAM ORDERED: 10/24/2023 HISTORY: . Lung cancer screening CT DLP: [address] CTDI: 2.41 mGy Automated exposure control for dose reduction was used. COMPARISON: None available. TECHNIQUE: Low dose computed tomography scan was performed through the chest at 1 mm thick sections a nd reconstructed images in multiple planes at 1 mm and [address] DIAGNOSTIC QUALITY: Satisfactory FINDINGS: LUNG NODULES: None. LUNGS: COPD: Severity: None Fibrosis: Severity: None Lymph nodes: No adenopathy. Other findings: RIGHT PLEURAL SPACE: Effusion: None Calcification: None Thickening: None Pneumothorax: None LEFT PLEURAL SPACE: Effusion: None Calcification: None Thickening: None Pneumothorax: None HEART: Heart Size: Normal Coronary Calcification: None Pericardial Effusion: None OTHER FINDINGS: Upper abdomen: There are 2 and 3 mm nonobstructing stone in the upper pole of the left kidney with th e visualized upper abdomen. The gallbladder surgically absent. Bony thorax: None Supraclavicular region: None Other: None IMPRESSION: Negative lung cancer screening examination for significant pulmonary nodules. CT LUNG RAD AND CT CHEST RECOMMENDATION: Lung-Rad 1 Negative: Continue annual screening with LDCT in 12 months. S Modifier (other clinically significant findings): None.
== END | disposition home or self-care (01) ==
LOC: RADCTMAIN 13:37
PROVIDERS: ATTEND Family Medicine
DX: Z12.2 Encounter for screening for malignant neoplasm of respiratory organs (principal); F17.210 Nicotine dependence, cigarettes, uncomplicated
CPT/HCPCS: 71271

== ENCOUNTER 2023-10-31 06:11 | Day surgery (SDC) | payer BC ==
--- NOTE | 2023-10-26 12:05 | P.GSHP ---
History of Present Illness H&P Date: 10/26/23 Chief Complaint: Gross hematuria The patient is a 53-year-old white female who has experienced recent gross hematuria. Approximately 6 months ago, she noted blood on the toilet paper after wiping. However, last month she experienced gross hematuria with clots. She has a history of urolithiasis. CT scan showed a 5 mm left renal calculus and a probable bladder mass. Cystoscopy revealed a 3 cm tumor cephalad to the right ureteral orifice, as well as 2 small tumors at the bladder dome. - Genitourinary (Female) Genitourinary: Reports as per HPI Past Medical History Past Medical History: No Reported History, Deep Vein Thrombosis (DVT), GERD/Reflux, Renal Disease Additional Past Medical History / Comment(s): Without menses for 2 years but lately some vaginal bleeding. 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 History of Any Multi-Drug Resistant Organisms: None Reported Past Surgical History: Appendectomy, Cholecystectomy, Orthopedic Surgery Additional Past Surgical History / Comment(s): shoulder surgery, cyst removed from thyroid, lithotripsy Past Anesthesia/Blood Transfusion Reactions: Motion Sickness, Postoperative Nausea & Vomiting (PONV) Additional Past Anesthesia/Blood Transfusion Reaction / Comment(s): Pt has never received blood. Past Psychological History: No Psychological Hx Reported Smoking Status: Current every day smoker Past Alcohol Use History: None Reported Past Drug Use History: None Reported - Past Family History Mother Family Medical History: Cancer Additional Family Medical History / Comment(s): . Breast cancer. Father Family Medical History: Cancer Additional Family Medical History / Comment(s): Prostate cancer, lung cancer. Medications and Allergies Home Medications Medication Instructions Recorded Confirmed Type Loratadine [Claritin] 10 mg PO DAILY PRN 05/06/21 09/26/23 History Acetaminophen Tab [Tylenol Tab] 1,000 mg PO Q6HR PRN 09/26/23 09/26/23 History Ibuprofen [Motrin Ib] 600 mg PO Q6H PRN 09/26/23 09/26/23 History clindamycin HCL [Cleocin] 300 mg PO Q6HR #40 cap 09/27/23 Rx Allergies Allergy/AdvReac Type Severity Reaction Status Date / Time amoxicillin trihydrate Allergy Swelling Verified 09/26/23 17:23 [From Augmentin] latex Allergy Swelling Verified 09/26/23 17:23 potassium clavulanate Allergy Swelling Verified 09/26/23 17:23 [From Augmentin] Surgical - Exam - General well developed, well nourished, no distress - Respiratory normal respiratory effort - Abdomen Abdomen: soft, non tender, no guarding, no rigid, no rebound - Genitourinary normal external genitalia - Psychiatric oriented to time, oriented to person, oriented to place, speech is normal, memory intact Results - Imaging CT scan - abdomen: report reviewed, image reviewed Assessment and Plan (1) Neoplasm of unspecified behavior of bladder Status: Acute Code(s): D49.4 - NEOPLASM OF UNSPECIFIED BEHAVIOR OF BLADDER SNOMED Code(s): 366518092 Plan: Cystoscopy, transurethral resection of bladder tumor. The procedure has been reviewed in detail with the patient. She is aware of potential risks, which include anesthesia, bleeding, infection, and bladder perforation. She was made aware of the fact that the tumor likely represents urothelial carcinoma of the bladder, and gemcitabine will be instilled into the bladder postresection to reduce the risk of recurrences. The need for smoking cessation has been stressed to the patient.
[2023-10-28 14:39] VITALS: BMI 20.6
[2023-10-31] MEDS ORDERED: LIDOCAINE 1% (10MG/ML) FOR IV START INTRADERMA PRN (06:33)
[2023-10-31] MEDS: LACTATED RINGERS 1,000 ML IV SCH (06:54)
[2023-10-31] MEDS: SCOPOLAMINE 1 MG/72 HR PATCH TRANSDERM ONE (06:56)
[2023-10-31] MEDS: MIDAZOLAM 2 MG/2 ML VIAL IVP ONE (06:57)
[2023-10-31] MEDS: ONDANSETRON 4 MG/2 ML VIAL IVP ONE (06:57)
[2023-10-31] MEDS: DEXAMETHASONE SOD PHOSPHATE 4 MG/ML 1 ML VIAL IV ONE (06:57)
[2023-10-31] MEDS ORDERED: MIDAZOLAM 2 MG/2 ML VIAL IV PRN (07:00)
[2023-10-31 07:14] VITALS: RESP 16
[2023-10-31] MEDS ORDERED: SUCCINYLCHOLINE CHLORIDE 200 MG/10 ML VIAL IV ONE (07:26)
[2023-10-31] MEDS ORDERED: PROPOFOL 10 MG/ML 20 ML VIAL IV ONE (07:26)
[2023-10-31] MEDS ORDERED: GLYCOPYRROLATE 0.2 MG/ML 2 ML VIAL ONE (07:26)
[2023-10-31] MEDS ORDERED: PHENYLEPHRINE 10 MG/ML VIAL ONE (07:26)
[2023-10-31] MEDS ORDERED: ROCURONIUM 10 MG/ML (5 ML VIAL) IV ONE (07:26)
[2023-10-31] MEDS ORDERED: LIDOCAINE 1% INJ 10MG/ML (20 ML MDV) ONE (07:26)
[2023-10-31] MEDS ORDERED: NEOSTIGMINE 1 MG/ML 10 ML VIAL ONE (07:26)
[2023-10-31] MEDS ORDERED: fentaNYL (PF) 50 MCG/ML 2 ML AMP ONE (07:26)
[2023-10-31] MEDS: GEMCITABINE HCL MISCELLANE PRN (08:30)
[2023-10-31] MEDS: SODIUM CHLORIDE 0.9% MISCELLANE PRN (08:30)
[2023-10-31] MEDS: HYDROmorphone 0.5 MG/0.5 ML SYRINGE IVP PRN (09:20)
[2023-10-31 09:28] VITALS: TEMP 97.7
--- NOTE | 2023-10-31 09:28 | P.OP ---
Date of Procedure: 10/31/23 Preoperative Diagnosis: Bladder tumors Postoperative Diagnosis: Same Procedure(s) Performed: Cystoscopy, transurethral resection of bladder tumor (medium), instillation of intravesical gemcitabine Anesthesia: CORINNE Surgeon: Ayaan Lazo Estimated Blood Loss (ml): 10 IV fluids (ml): 400 Pathology: other (Tumor fragments) Condition: stable Disposition: PACU Indications for Procedure: The patient is a 53-year-old white female who has experienced recent gross hematuria. Approximately 6 months ago, she noted blood on the toilet paper after wiping. However, last month she experienced gross hematuria with clots. She has a history of urolithiasis. CT scan showed a 5 mm left renal calculus and a probable bladder mass. Cystoscopy revealed a 3 cm tumor cephalad to the right ureteral orifice, as well as 2 small tumors at the bladder dome. Operative Findings: 2 papillary bladder tumors at right bladder dome, measuring 1 to 2 cm in size. 3 to 4 cm bladder tumor arising from right posterolateral bladder wall. All tumors resected completely. All have a papillary, noninvasive appearance. Description of Procedure: The patient was taken in the operating room and placed in the dorsal lithotomy position, with her legs supported in Ramiro stirrups. The external genitalia was prepped and draped sterilely. The 25-[place]oven[place] ACMI resectoscope sheath was introduced into the bladder. The bladder was inspected. Both ureteral orifices were of normal anatomic location and configuration, and clear urine effluxed from both. The entire bladder was examined, revealing a 3 to 4 cm papillary tumor lateral to the right ureteral orifice, and 2 tumors measuring approximately 1 cm in diameter at the right bladder dome. Using the bipolar cutting loop, the tumors were resected down to the muscle. Tumor resection was complete, and there was no evidence of bladder perforation. Excellent hemostasis was attained. The resected tissue was saved and sent for pathologic examination. A 20-Sloven[place] Salguero catheter was inserted. The return was clear. 2 g of Gemcitabine was instilled into the bladder. The Salguero catheter was plugged. The patient tolerated the procedure well and was taken to the recovery room in stable condition.
[2023-10-31] MEDS: ALBUMIN HUMAN 5% (12.5gm) 250 ML BOTTLE IVPB ONE (10:34)
[2023-10-31 11:18] LABS: Glucose,Whole Blood 117 mg/dL (70-110)
[2023-10-31 11:20] LABS: Basophils % (A) 0 %; Eosinophils # (A) 0.1 k/uL (0-0.7); Eosinophils % (A) 1 %; HCT 40.1 % (34.0-46.0); Lymphocytes # (A) 1.4 k/uL (1.0-4.8); Lymphocytes % (A) 18 %; MCH 27.9 pg (25.0-35.0); MCHC 32.5 g/dL (31.0-37.0); MCV 85.8 fL (80.0-100.0); Mean Platelet Volume 7.1; Monocytes # (A) 0.1 k/uL (0-1.0); Monocytes % (A) 2 %; Neutrophils # (A) 6.2 k/uL (1.3-7.7); Neutrophils % (A) 79 %; Platelet Count 268 k/uL (150-450); RBC 4.67 m/uL (3.80-5.40); RDW 13.7 % (11.5-15.5); WBC 7.9 k/uL (3.8-10.6)
[2023-10-31] MEDS ORDERED: KETOROLAC 15 MG/ML 1 ML VIAL ONE (12:08)
[2023-10-31] MEDS: KETOROLAC 15 MG/ML 1 ML VIAL IVP ONE (12:13)
[2023-10-31 12:45] VITALS: BP 101/64; PULSE 78
== END 2023-10-31 13:20 | disposition home or self-care (01) ==
LOC: OR 06:11
PROVIDERS: ATTEND Urology
DX: C67.1 Malignant neoplasm of dome of bladder (principal); F17.200 Nicotine dependence, unspecified, uncomplicated; Z86.718 Personal history of other venous thrombosis and embolism; Z88.0 Allergy status to penicillin; Z88.1 Allergy status to other antibiotic agents; Z90.49 Acquired absence of other specified parts of digestive tract; Z91.040 Latex allergy status
CPT/HCPCS: 88305; 85025; 52235; P9045; J2250; J0330; J1100; J2710; J0690; J2405; J2001; J3010; J1885; J2704; J1170; J2371; J9196

== ENCOUNTER 2024-04-30 06:04 | Day surgery (SDC) | payer BC ==
[2024-04-27 16:18] VITALS: BMI 35.3
--- NOTE | 2024-04-29 21:43 | P.GSHP ---
History of Present Illness H&P Date: 04/29/24 Chief Complaint: Recurrent bladder cancer The patient is a 54-year-old white female who underwent resection of 2 papillary bladder tumors at right bladder dome, measuring 1 to 2 cm in size, along with a 3 to 4 cm bladder tumor arising from right posterolateral bladder wall pathology review revealed low-grade TA urothelial carcinoma. Surveillance cystoscopy last month showed a 1 cm tumor on the anterior bladder wall, as well as a questionable tumor within the right hemitrigone. She now comes for resection. - Genitourinary (Female) Genitourinary: Denies dysuria, Denies hematuria Past Medical History Past Medical History: Cancer, Deep Vein Thrombosis (DVT), GERD/Reflux Additional Past Medical History / Comment(s): "Borderline Diabetes." Current bladder cancer. Sinus allergies, headaches. Hx DVT in right hand r/t IV. Hx kidney stones. History of Any Multi-Drug Resistant Organisms: None Reported Past Surgical History: Appendectomy, Bladder Surgery, Cholecystectomy, Orthopedic Surgery Additional Past Surgical History / Comment(s): Right shoulder surgery, cyst removed from thyroid, lithotripsy, cyst removed from ovary, bladder tumor removed. Past Anesthesia/Blood Transfusion Reactions: Motion Sickness, Postoperative Nausea & Vomiting (PONV) Additional Past Anesthesia/Blood Transfusion Reaction / Comment(s): Pt has never received blood. Smoking Status: Current every day smoker - Past Family History Mother Family Medical History: Cancer Additional Family Medical History / Comment(s): . Breast cancer. Father Family Medical History: Cancer Additional Family Medical History / Comment(s): Prostate cancer, lung cancer. Medications and Allergies Home Medications Medication Instructions Recorded Confirmed Type Loratadine-Pseudoeph 10-240 mg 1 tab PO DAILY PRN 04/27/24 04/27/24 History [Claritin-D 24 Hour] Multivitamins, Thera [Multivitamin 1 tab PO DAILY 04/27/24 04/27/24 History (formulary)] Allergies Allergy/AdvReac Type Severity Reaction Status Date / Time amoxicillin trihydrate Allergy Swelling Verified 04/27/24 15:55 [From Augmentin] latex Allergy Swelling Verified 04/27/24 15:55 potassium clavulanate Allergy Swelling Verified 04/27/24 15:55 [From Augmentin] Surgical - Exam - General well developed, well nourished, no distress - Respiratory normal respiratory effort - Abdomen Abdomen: soft, non tender, no guarding, no rigid, no rebound - Genitourinary normal external genitalia - Psychiatric oriented to time, oriented to person, oriented to place, speech is normal, memory intact Assessment and Plan (1) Malignant neoplasm of bladder, unspecified Status: Acute Code(s): C67.9 - MALIGNANT NEOPLASM OF BLADDER, UNSPECIFIED SNOMED Code(s): 562190623 Plan: Cystoscopy, transurethral resection of bladder tumors. The patient is aware of potential risks, which include anesthesia, bleeding, infection, and bladder perforation.
[2024-04-30] MEDS: IV FLUID CONTINUATION 1,000 ML IV ONE (06:43)
[2024-04-30] MEDS: ONDANSETRON 4 MG/2 ML VIAL IVP ONE (07:09)
[2024-04-30] MEDS: LIDOCAINE 1% (10MG/ML) FOR IV START INTRADERMA PRN (07:09)
[2024-04-30] MEDS: LACTATED RINGERS 1,000 ML IV SCH (07:09)
[2024-04-30] MEDS: DEXAMETHASONE SOD PHOSPHATE 4 MG/ML 1 ML VIAL IV ONE (07:10)
[2024-04-30] MEDS: SCOPOLAMINE 1 MG/72 HR PATCH TRANSDERM STA (07:12)
[2024-04-30] MEDS: FAMOTIDINE 20 MG/2 ML VIAL IV STA (07:14)
[2024-04-30 07:21] LABS: Glucose,Whole Blood 103 mg/dL (70-110)
[2024-04-30] MEDS ORDERED: LIDOCAINE 1% INJ 10MG/ML (20 ML MDV) ONE (07:30)
[2024-04-30] MEDS ORDERED: diphenhydrAMINE 50 MG/ML 1 ML VIAL ONE (07:30)
[2024-04-30] MEDS ORDERED: fentaNYL (PF) 50 MCG/ML 2 ML AMP ONE (07:30)
[2024-04-30] MEDS ORDERED: ROCURONIUM 10 MG/ML (5 ML VIAL) IV ONE (07:30)
[2024-04-30] MEDS ORDERED: SUCCINYLCHOLINE CHLORIDE 200 MG/10 ML VIAL IV ONE (07:30)
[2024-04-30] MEDS ORDERED: GLYCOPYRROLATE 0.2 MG/ML 2 ML VIAL ONE (07:30)
[2024-04-30] MEDS ORDERED: PROPOFOL 10 MG/ML 20 ML VIAL IV ONE (07:30)
[2024-04-30] MEDS ORDERED: NEOSTIGMINE 1 MG/ML 10 ML VIAL ONE (07:30)
[2024-04-30] MEDS ORDERED: MIDAZOLAM 2 MG/2 ML VIAL ONE (07:30)
[2024-04-30 08:43] VITALS: TEMP 97.4
--- NOTE | 2024-04-30 09:00 | P.OP ---
Date of Procedure: 04/30/24 Preoperative Diagnosis: Recurrent urothelial carcinoma the bladder Postoperative Diagnosis: Same Procedure(s) Performed: Cystoscopy, transurethral resection of bladder tumor (small) Anesthesia: CINTHYAA Surgeon: Ayaan Lazo Estimated Blood Loss (ml): 0 IV fluids (ml): 500 Pathology: other (Tumor fragments) Condition: stable Disposition: PACU Indications for Procedure: The patient is a 54-year-old white female who underwent resection of 2 papillary bladder tumors at right bladder dome, measuring 1 to 2 cm in size, along with a 3 to 4 cm bladder tumor arising from right posterolateral bladder wall pathology review revealed low-grade TA urothelial carcinoma. Surveillance cystoscopy last month showed a 1 cm tumor on the anterior bladder wall, as well as a questionable tumor within the right hemitrigone. She now comes for resection. Operative Findings: 1 cm anterior papillary bladder tumor. Mucosal irregularity of right trigone, suspicious for low-grade superficial urothelial carcinoma. Description of Procedure: The patient was taken in the operating room and placed in the dorsal lithotomy position, with her legs supported in Ramiro stirrups. The external genitalia was prepped and draped sterilely. The 25-[place] ACMI resectoscope sheath was introduced into the bladder. The bladder was inspected. Both ureteral orifices were of normal anatomic location and configuration, and clear urine effluxed from both. The entire bladder was examined, revealing a 1 cm papillary tumor on the distal anterior bladder wall. Mucosal irregularity was also seen medial to the right ureteral orifice, suspicious for low-grade malignancy. Using the bipolar cutting loop, the tumors were resected down to the superficial muscle. Excellent hemostasis was attained. The resected tissue was saved and sent for pathologic examination. The bladder was emptied and the resectoscope removed. The patient tolerated the procedure well and was taken to the recovery room in stable condition.
[2024-04-30] MEDS: HYDROmorphone 0.5 MG/0.5 ML SYRINGE IVP PRN (09:16)
[2024-04-30 11:20] VITALS: RESP 16
[2024-04-30 11:34] VITALS: BP 112/71; PULSE 84
== END 2024-04-30 11:54 | disposition home or self-care (01) ==
LOC: OR 06:04
PROVIDERS: ATTEND Urology
DX: C67.1 Malignant neoplasm of dome of bladder (principal); K21.9 Gastro-esophageal reflux disease without esophagitis; F17.200 Nicotine dependence, unspecified, uncomplicated; Z85.51 Personal history of malignant neoplasm of bladder; Z86.718 Personal history of other venous thrombosis and embolism; Z88.0 Allergy status to penicillin; Z88.1 Allergy status to other antibiotic agents; Z90.49 Acquired absence of other specified parts of digestive tract; Z91.040 Latex allergy status; Z90.721 Acquired absence of ovaries, unilateral; Z87.442 Personal history of urinary calculi; Z80.1 Family history of malignant neoplasm of trachea, bronchus and lung; Z80.3 Family history of malignant neoplasm of breast
CPT/HCPCS: 88307; 99204